=== PATIENT | female | born 1960 | race Caucasian/White ===

== ENCOUNTER 2021-07-16 17:07 | Inpatient (IN) | payer BC, SELFPAY ==
[2021-07-16 17:41] VITALS: BP 153/91; PULSE 84; RESP 18; TEMP 37.7; O2SAT 94; BMI 29.5
[2021-07-16 18:44] LABS: Basophils # 0.1 10^3/uL (0.0-0.1); Basophils % 0.5 %; Eosinophils # 0.1 10^3/uL (0.0-0.8); Eosinophils % 0.5 %; Hematocrit 39.3 % (37.0-47.0); Hemoglobin 12.5 g/dL (11.5-15.3); Lymphocytes # 2.9 10^3/uL (0.8-4.8); Lymphocytes % 21.9 %; Mean Corpuscular HGB Conc 31.8 g/dL (30.0-36.0); Mean Corpuscular Hemoglobin 28.3 pg (28.0-34.0); Mean Corpuscular Volume 89.1 fl (81-99); Mean Platelet Volume 9.5 fL (7.4-10.4); Monocytes % 7.6 %; Neutrophils # 9.26 10^3/uL (1.8-7.7); Neutrophils % 69.1 %; Nucleated Red Blood Cells % 0 %; Platelet Count 356 10^3/cmm (130-400); Red Blood Count 4.41 10^6/uL (4.1-5.3); Red Cell Distribution Width 12.6 % (12.1-15.1); White Blood Count 13.4 10^3/uL (4.0-10.0)
--- NOTE | 2021-07-16 18:53 | CTR_ITS ---
PROCEDURE INFORMATION: Exam: CT Abdomen And Pelvis With Contrast Exam date and time: 07/16/2021 6:53 PM Age: 60 years old Clinical indication: Abdominal pain; Localized; Left lower quadrant (llq); Prior surgery; Surgery type: Gb. Hysterectomy. Bladder suspension. ; Patient HX: Llq pain x 3 days; Additional info: Right lower quad abd pain TECHNIQUE: Imaging protocol: Computed tomography of the abdomen and pelvis with contrast. Radiation optimization: All CT scans at this facility use at least one of these dose optimization techniques: automated exposure control; mA and/or kV adjustment per patient size (includes targeted exams where dose is matched to clinical indication); or iterative reconstruction. Contrast material: OMNI 300; Contrast volume: 95 ml; Contrast route: INTRAVENOUS (IV); COMPARISON: No relevant prior studies available. RADIATION DOSE METRICS: Total DLP (mGy-cm): 1645.58 FINDINGS: Liver: Normal. No mass. Gallbladder and bile ducts: Cholecystectomy. No ductal dilation. Pancreas: Normal. No ductal dilation. Spleen: Normal. No splenomegaly. Adrenal glands: Normal. No mass. Kidneys and ureters: Normal. No hydronephrosis. Stomach and bowel: Extensive colonic diverticulosis. Acute diverticulitis within the distal sigmoid colon complicated by intramural abscess formation measuring 2.5 x 2.0 x 2.3 cm series 2, image 70 and series 602, image 23. Trace adjacent free fluid noted in the pelvis with extensive pericolonic inflammation in this region. Appendix: No evidence of appendicitis. Intraperitoneal space: Please see stomach and bowel section. Vasculature: Unremarkable. No abdominal aortic aneurysm. Lymph nodes: Unremarkable. No enlarged lymph nodes. Urinary bladder: Unremarkable as visualized. Reproductive: Hysterectomy. Bones/joints: No acute fracture. Degenerative disc disease at L5-S1. Soft tissues: Unremarkable. CT/CT abdomen pelvis w con* [id number] IMPRESSION: Acute diverticulitis of the distal sigmoid colon complicated by intramural abscess formation measuring 2.5 x 2.0 x 2.3 cm.
--- NOTE | 2021-07-16 18:55 | ED_ITS ---
HPI - Abdominal Pain General: Chief Complaint: Abdominal Pain Stated Complaint: ABD PAIN Time Seen by Provider: 07/16/21 18:41 History of Present Illness: Had someThis patient comes to the emergency department at the request of her nurse practitioner. Lower abdominal pain for the last approximately 3 days. She thought she might be developing a urinary tract infection but her urinalysis was not conclusive today shows she was sent to the emergency department. She states the pain is predominantly in her left lower and mid lower abdomen. She has urinary urgency but does not unusual for her. She has had a decreased appetite today. She has not had any vomiting. She has had decreased caliber of her stools over the last 24 hours. She has had a prior cholecystectomy, hysterectomy, bladder suspension. She denies any known exposure to infectious disease. She is normally in good health and takes antihypertensives. She states the pain has seemingly worsened and it kept her up last night from a good nights rest. MD elicited complaint: abdominal pain Pain Consistency: constant Quality: cramping and dull Migration to: no migration Exacerbating factors: nothing Relieving factors: nothing Associated Symptoms: Reports change in stool character, chills and poor appetite; Denies dysuria and melena Review of Systems Const: Reports: chills and change in appetite Eyes: Denies: change in vision ENMT: Denies: throat pain Card: Denies: chest pain or palpitations Resp: Denies: dyspnea, productive cough or non-productive cough GI: Reports: abdominal pain and change in stool character; Denies: melena : Reports: urinary frequency and urinary urgency; Denies: flank pain, difficulty voiding or dysuria Musc: Denies: back pain, extremity pain or extremity swelling Skin/Breast: Denies: rash, pruritus or erythema Neuro: Denies: headache(s), numbness in extremities or dizziness Psych: Denies: anxiety or depression Endo: Denies: polyuria Physical Exam Narrative: EXAM NARRATIVE: She appears to be comfortable. She answers questions in a goal-directed fashion. Const: COMMON NORMALS: no acute distress, average body habitus and patient oriented x3 HENMT: COMMON NORMALS: normocephalic HEAD & SCALP: normocephalic MOUTH: Normal oral and palatal mucosa present (Mask per protocol) Eye: COMMON NORMALS: Equal, round and reactive pupils present, EOMs intact bilaterally, conjunctivae normal and no scleral icterus CONJUNCTIVA: Yes conjunctivae normal PUPIL: Yes Equal, round and reactive pupils present Neck/C-Spine: COMMON NORMALS: full ROM, no JVD, Thyroid normal and No carotid bruits THYROID: Thyroid normal Chest: COMMONS NORMALS: normal inspection of the chest and normal palpation of entire chest wall Resp: COMMON NORMALS: normal respiratory effort, No use of accessory muscles and clear to auscultation bilaterally AUSCULTATION: clear to auscultation bilaterally Cardio: COMMON NORMALS: no JVD, regular rate, No murmurs present (Cardio) and Peripheral pulses 2+ throughout RATE: regular rate PERIPHERAL PULSES: Peripheral pulses 2+ throughout GI: COMMON NORMALS: No hepatosplenomegaly present and no masses PALPATION: Yes Tenderness to palpation present (GI) (Mild tenderness across the lower portion of her abdomen. She does have a m) Details: RLQ, Yes No hepatospleno megaly present and No Ascites present : COMMON NORMALS: Yes no CVA tenderness BLADDER/KIDNEY EXAM: Yes no CVA tenderness Back/Pelvis: COMMON NORMALS: no CVA tenderness, thoracic and lumbar spine normal to inspection and no thoracic nor lumbar tenderness Extremity: COMMON NORMALS: normal to inspection, full ROM, capillary refill normal, no clubbing, cyanosis or edema, no calf tenderness and no pedal edema Neuro: COMMON NORMALS: patient oriented x3, moves all extremities, no focal motor deficits and no sensory deficits noted SPEECH: speech normal Course Consultations: Consultation #1: Discussed with on-call surgeon and reviewed CT scan findings. He agreed with plan of management and will follow as needed but recommends admission to medicine. Time: 21:09 Consultation #2: D/c with Dr Stone, hospitalist who will see and assume care Time: 21:17 Vital Signs: Vital signs: Vital Signs Temperature 98.1 F 07/16/21 20:51 Pulse Rate 84 07/16/21 20:51 Respiratory Rate 16 07/16/21 20:51 Blood Pressure 144/60 07/16/21 20:51 Pulse Oximetry 94 07/16/21 20:51 MDM - Abdominal Pain Medical Decision Making Patient has diverticulitis with abscess formation without any evidence of perforation at this time. We will go ahead and initiate antibiotic coverage. Clinically does not suggest sepsis or other more concerning condition at this time. I discussed with patient and spouse at this time its usual recommendation to place in observation to ensure resolution. We will also discussed with general surgeon and hospitalist team. Also informed patient and spouse that we will be holding her in the emergency department until we have an open bed. Differential Diagnosis Likely abdominal pain Lab Data : 07/16/21 18:32 07/16/21 18:32 Labs/Radiology: Radiology Impressions Abdomen/Pelvis CT 07/16/21 18:53 IMPRESSION: Acute diverticulitis of the distal sigmoid colon complicated by intramural abscess formation measuring 2.5 x 2.0 x 2.3 cm. ADDENDUM: 07/16/212035 Findings were discussed with CAITLYN WILLETT at 07/16/2021 8:35 PM SCIENTIFIC ILLUSTRATOR. Laboratory Results WBC 13.4 10^3/uL (4.0-10.0) H 07/16/21 18:32 RBC 4.41 10^6/uL (4.1-5.3) 07/16/21 18:32 Hgb 12.5 g/dL (11.5-15.3) 07/16/21 18:32 Hct 39.3 % (37.0-47.0) 07/16/21 18:32 MCV 89.1 fl (81-99) 07/16/21 18:32 MCH 28.3 pg (28.0-34.0) 07/16/21 18:32 MCHC 31.8 g/dL (30.0-36.0) 07/16/21 18:32 RDW 12.6 % (12.1-15.1) 07/16/21 18:32 Plt Count 356 10^3/cmm (130-400) 07/16/21 18:32 MPV 9.5 fL (7.4-10.4) 07/16/21 18:32 Neut % (Auto) 69.1 % 07/16/21 18:32 Lymph % (Auto) 21.9 % 07/16/21 18:32 [place] % (Auto) 7.6 % 07/16/21 18:32 Eos % (Auto) 0.5 % 07/16/21 18:32 Baso % (Auto) 0.5 % 07/16/21 18:32 Neut # (Auto) 9.26 10^3/uL (1.8-7.7) H 07/16/21 18:32 Lymph # (Auto) 2.9 10^3/uL (0.8-4.8) 07/16/21 18:32 [place] # (Auto) 1.0 10^3/uL (0.2-0.9) H 07/16/21 18:32 Eos # (Auto) 0.1 10^3/uL (0.0-0.8) 07/16/21 18:32 Baso # (Auto) 0.1 10^3/uL (0.0-0.1) 07/16/21 18:32 Nucleated RBC % (auto) 0 % 07/16/21 18:32 Nucleated RBCs # 0.0 /100WBC 07/16/21 18:32 Sodium 140 mmol/L (136-145) 07/16/21 18:32 Potassium 4.1 mmol/L (3.5-5.1) 07/16/21 18:32 Chloride 102 mmol/L (98-107) 07/16/21 18:32 Carbon Dioxide 24 mmol/L (22-29) 07/16/21 18:32 Anion Gap 18.1 (5-19) 07/16/21 18:32 BUN 7 mg/dL (8-23) L 07/16/21 18:32 Creatinine 0.6 mg/dL (0.5-0.9) 07/16/21 18:32 GFR Calculation 101.3 mL/min (90-130) 07/16/21 18:32 Glucose 97 mg/dL (65-115) 07/16/21 18:32 Calculated Osmolality 288 mOsm/kg (285-295) 07/16/21 18:32 Calcium 9.8 mg/dL (8.5-10.5) 07/16/21 18:32 Total Bilirubin 0.4 mg/dL (0.15-1.2) 07/16/21 18:32 AST 21 U/L (0-32) 07/16/21 18:32 ALT 15 U/L (0-33) 07/16/21 18:32 Alkaline Phosphatase 117 IU/L (35-105) H 07/16/21 18:32 Total Protein 7.7 g/dL (6.6-8.7) 07/16/21 18:32 Albumin 4.1 g/dL (3.5-5.2) 07/16/21 18:32 Globulin 3.6 g/dL (1.3-4.6) 07/16/21 18:32 Lipase 37 U/L (13-60) 07/16/21 18:32 Urine Color Yellow (Yellow) 07/16/21 17:20 Urine Appearance Clear (CLEAR) 07/16/21 17:20 Urine pH 6 (5-7) 07/16/21 17:20 Ur Specific [place] 1.005 (1.005-1.030) 07/16/21 17:20 Urine Protein Neg (Negative) 07/16/21 17:20 Urine Glucose (UA) Norm (Normal) 07/16/21 17:20 Urine Ketones Negative (Negative) 07/16/21 17:20 Urine Blood Neg (Negative) 07/16/21 17:20 Urine Nitrate Negative (Negative) 07/16/21 17:20 Urine Bilirubin Neg (Negative) 07/16/21 17:20 Urine Urobilinogen Neg mg/dL (Negative) 07/16/21 17:20 Ur Leukocyte Esterase 1+ (Negative) H 07/16/21 17:20 Urine RBC Rare /hpf (0-2) 07/16/21 17:20 Urine WBC 0-4 /hpf (0-5) H 07/16/21 17:20 Ur Squamous Epith Cells Rare /hpf (0-5) 07/16/21 17:20 Amorphous Sediment Not Reportable 07/16/21 17:20 Urine Bacteria Trace /hpf (NONE) 07/16/21 17:[address] Abd/Pel: Radiologist's impression: Verbal report from radiologist was diverticulitis with intramural abscess. See full report. Discharge Plan Discharge Patient Disposition: Admitted As Inpatient Clinical Impression: Diverticulitis of intestine with abscess without bleeding Condition: Stable Coding Level of Care Code ED Product Marketing Engineer for Chg Fwd Exam Comprehensive
[2021-07-16 19:10] LABS: Alanine Aminotransferase 15 U/L (0-33); Albumin Level 4.1 g/dL (3.5-5.2); Alkaline Phosphatase 117 IU/L (35-105); Anion Gap 18.1 (5-19); Aspartate Amino Transferase 21 U/L (0-32); Blood Urea Nitrogen 7 mg/dL (8-23); Calcium 9.8 mg/dL (8.5-10.5); Carbon Dioxide 24 mmol/L (22-29); Chloride 102 mmol/L (98-107); Globulin 3.6 g/dL (1.3-4.6); Glomerular Filtration Rate 101.3 mL/min (90-130); Glucose 97 mg/dL (65-115); Lipase 37 U/L (13-60); Osmolality Calculated 288 mOsm/kg (285-295); Potassium 4.1 mmol/L (3.5-5.1); Sodium 140 mmol/L (136-145); Total Bilirubin 0.4 mg/dL (0.15-1.2); Total Protein 7.7 g/dL (6.6-8.7)
[2021-07-16 19:36] LABS: Add Urine Culture? No; Add Urine Microscopic? YES; Bacteria Urine TRACE /hpf; Bilirubin Urine Neg (Negative); Blood Urine Neg (Negative); Glucose Urine UA Norm (Normal); Ketones Urine Negative (Negative); Leukocyte Esterase Urine 1+ (Negative); Nitrate Urine Negative (Negative); Protein Urine Neg (Negative); RBC Urine RARE /hpf (0-2); Specific Gravity, Urine 1.005 (1.005-1.030); Squamous Epithelial Cell Urine RARE /hpf (0-5); Urine Appearance Clear (CLEAR); Urine Color Yellow (Yellow); Urobilinogen Urine Neg (Negative); WBC Urine 0-4 /hpf (0-5); pH Urine 6 (5-7)
[2021-07-16] MEDS: iohexol 300 mg/mL 100 mL Btl IV (20:02)
[2021-07-16 20:22] VITALS: TEMP 36.7
[2021-07-16] MEDS: sodium chloride 0.9% 1,000 ML 150 ML IV (20:50)
[2021-07-16 20:51] VITALS: BP 144/60; PULSE 84; RESP 16; TEMP 36.7; O2SAT 94
[2021-07-16] MEDS: ciprofloxacin 400 MG/200 ML PREMIX 200 MG IV (21:40)
[2021-07-16 22:06] VITALS: BP 101/92; PULSE 78; RESP 16; TEMP 37.3; O2SAT 96
--- NOTE | 2021-07-16 22:10 | PM.HP ---
Providers/Chief Complaint Primary Care Provider: Emily Rodriges DO Chief Complaint: ABD PAIN History of Present Illness Rosa Hart is a 60 year old female with a past medical history of hypothyroidism, hypertension, diverticulitis, who presents to [facility] for right lower quadrant abdominal pain. Patient tells me that she has had 2 episodes of diverticulitis in the past, over 10 years ago, had a colonoscopy a few years ago that showed diverticula, she tells me that over the last few days she has been experiencing increasing abdominal pain, decreased appetite, nausea, decreased stooling, with low-grade fevers. She also started developing low-grade fevers, so she presented to her primary care physician, and was found to have right lower quadrant pain, given concerns for appendicitis was sent here to the emergency room. Patient CT scan shows acute diverticulitis with an intramural abscess, hospitalist team was called for admission. Review of Systems Const: Reports: fever(s); Denies: chills, fatigue or malaise Eyes: Denies: change in vision or blurry vision ENMT: Denies: nasal congestion Resp: Denies: dyspnea, productive cough, non-productive cough or wheezing GI: Reports: abdominal pain and nausea; Denies: vomiting, hematemesis, diarrhea, constipation, hematochezia or melena : Denies: flank pain, dysuria or urinary frequency Musc: Denies: neck pain or back pain Skin/Breast: Denies: rash Neuro: Denies: headache(s), dizziness or vertigo Psych: Denies: anxiety or depression Endo: Denies: polyuria or polydipsia Medications/Allergies Allergies Allergy/AdvReac Type Severity Reaction Status Date / Time GEL caps Allergy ALGY-Anaphy Uncoded 07/16/21 17:40 laxis PFSH Acute PFSH: Medical History (Updated 07/16/21 @ 22:14 by Sang Stone MD) History of hypertension History of hypothyroidism Surgical History (Updated 07/16/21 @ 22:12 by Sang Stone MD) History of bilateral knee replacement History of cholecystectomy Family History (Updated 07/16/21 @ 22:13 by Sang Stone MD) Mother CAD (coronary artery disease) Stroke Social History (Updated 07/16/21 @ 22:12 by Sang Stone MD) Smoking and tobacco status: never smoked Alcohol intake: never Substance/Drug Use: never Vitals/I&O/Wt Last Vital Signs Temp 99.2 F 07/16/21 22:06 Pulse 78 07/16/21 22:06 Resp 16 07/16/21 22:06 BP 101/92 07/16/21 22:06 Pulse Ox 96 07/16/21 22:06 Weight last 48 hrs Weight 78.018 kg Physical Exam Const: COMMON NORMALS: no acute distress and patient oriented x3 GENERAL APPEARANCE: cooperative, well kempt and well developed HENMT: COMMON NORMALS: normocephalic and Normal external nose present HEAD & SCALP: normocephalic FACE & SINUS: normal facial exam NOSE: Normal external nose present MOUTH: Normal oral and palatal mucosa present Eye: COMMON NORMALS: Equal, round and reactive pupils present, EOMs intact bilaterally, conjunctivae normal and no scleral icterus CONJUNCTIVA: Yes conjunctivae normal PUPIL: Yes Equal, round and reactive pupils present Neck/C-Spine: COMMON NORMALS: full ROM, no lymphadenopathy, no JVD and Thyroid normal Lymph: LYMPHATIC: no lymphadenopathy noted Chest: COMMONS NORMALS: normal inspection of the chest Resp: COMMON NORMALS: normal respiratory effort, No retractions, No use of accessory muscles and clear to auscultation bilaterally AUSCULTATION: clear to auscultation bilaterally Cardio: COMMON NORMALS: regular rate, regular rhythm, S1 normal heart sound present, S2 normal heart sound present, No murmurs present (Cardio) and Peripheral pulses 2+ throughout RATE: regular rate RHYTHM: regular rhythm HEART SOUNDS: S1 normal heart sound present and S2 normal heart sound present PERIPHERAL PULSES: Peripheral pulses 2+ throughout GI: INSPECTION: Yes normal to inspection AUSCULTATION: Yes Hyperactive bowel sounds present PALPATION: Yes Soft to palpation, Yes Tenderness to palpation present (GI) Details: LLQ and RLQ, No Guarding due to palpation present (GI) and No Rigid due to palpation PERCUSSION: normal to percussion : COMMON NORMALS: Yes no CVA tenderness Extremity: COMMON NORMALS: normal to inspection, full ROM, capillary refill normal, no calf tenderness and no pedal edema Neuro: COMMON NORMALS: patient oriented x3, CN's II-XII intact bilaterally, moves all extremities, no focal motor deficits and no sensory deficits noted MENINGEAL SIGNS: Yes no meningeal signs Psych: COMMON NORMALS: mental status grossly normal, Normal thought process present, cooperative and speech normal APPEARANCE: Yes well kempt SPEECH: Yes normal speech THOUGHT PROCESS: Normal thought process present Skin: COMMON NORMALS: turgor normal and no jaundice GENERAL SKIN EXAM: turgor normal Data : 07/16/21 18:32 07/16/21 18:32 A&P Assessment and plan (1) Diverticulitis of intestine with abscess: Status: Acute Plan Acute diverticulitis of sigmoid colon complicated by intramural abscess formation measuring 2.5 x 2 x 2.3 cm -He has consulted general surgery, who recommended medical management -N.p.o. - serial abdominal exams - IV fluids -Cipro and Flagyl -Full code -Heparin for DVT prophylaxis Hypothyroidism, patient's not sure how much levothyroxine she takes, will have to find out from her pharmacy tomorrow Hypertension, takes amlodipine at home hold for now Attestations Medical Necessity Statement*: Patient requires hospitalization, inpatient, greater than 2 midnights, for diverticulitis Coding Level of Care Code Acute Lower In Supervisor for Chg Fwd History Comprehensive Exam Comprehensive Medical Decision Making Moderate Complexity Diagnoses Diverticulitis of intestine with abscess K57.80 Time Spent (min) 55
[2021-07-16] MEDS: metroNIDAZOLE IV 500 MG/100 ML PREMIX 100 MG IV (23:10)
[2021-07-16 23:31] VITALS: BP 110/87; PULSE 75; RESP 16; TEMP 37.1; O2SAT 96
[2021-07-17] VITALS (10 sets, daily range): BP systolic 114–140; BP diastolic 62–85; PULSE 70–82; RESP 16–18; TEMP 36.7–37.1; O2SAT 94–98
[2021-07-17] MEDS: dextrose 5%-sod chloride 0.9% 1,000 ML 100 ML IV ×3 (01:37→22:21)
[2021-07-17] MEDS: heparin 5,000 unit/mL INJ 1 mL 5000 UNIT SUBCUT (01:37)
[2021-07-17] MEDS: pantoprazole 40 mg SDV IVP (01:39)
[2021-07-17 02:03] LABS: Thyroid Stimulating Hormone 2.66 uIU/mL (0.27-4.20)
[2021-07-17 04:29] LABS: Basophils % 0.3 %; Eosinophils # 0.1 10^3/uL (0.0-0.8); Eosinophils % 0.6 %; Hematocrit 34.3 % (37.0-47.0); Hemoglobin 11.2 g/dL (11.5-15.3); Lymphocytes # 2.2 10^3/uL (0.8-4.8); Lymphocytes % 20.4 %; Mean Corpuscular HGB Conc 32.7 g/dL (30.0-36.0); Mean Corpuscular Hemoglobin 29.1 pg (28.0-34.0); Mean Corpuscular Volume 89.1 fl (81-99); Mean Platelet Volume 9.7 fL (7.4-10.4); Monocytes # 1.1 10^3/uL (0.2-0.9); Monocytes % 10.2 %; Neutrophils # 7.25 10^3/uL (1.8-7.7); Neutrophils % 68.1 %; Nucleated Red Blood Cells % 0 %; Platelet Count 297 10^3/cmm (130-400); Red Blood Count 3.85 10^6/uL (4.1-5.3); Red Cell Distribution Width 12.7 % (12.1-15.1); White Blood Count 10.6 10^3/uL (4.0-10.0)
[2021-07-17 04:54] LABS: Alanine Aminotransferase 14 U/L (0-33); Albumin Level 3.3 g/dL (3.5-5.2); Alkaline Phosphatase 99 IU/L (35-105); Anion Gap 16.4 (5-19); Aspartate Amino Transferase 17 U/L (0-32); Blood Urea Nitrogen 6 mg/dL (8-23); C Reactive Protein 48.7 mg/L (0.0-4.9); Carbon Dioxide 22 mmol/L (22-29); Chloride 105 mmol/L (98-107); Globulin 3.1 g/dL (1.3-4.6); Glucose 98 mg/dL (65-115); Magnesium 1.9 mg/dL (1.7-2.3); Osmolality Calculated 288 mOsm/kg (285-295); Potassium 3.4 mmol/L (3.5-5.1); Sodium 140 mmol/L (136-145); Total Bilirubin 0.6 mg/dL (0.15-1.2); Total Protein 6.4 g/dL (6.6-8.7)
[2021-07-17 04:56] LABS: Phosphorus 3.5 mg/dL (2.5-4.5)
[2021-07-17 05:01] LABS: Procalcitonin 0.07 ng/mL (0-0.5)
[2021-07-17] MEDS: metroNIDAZOLE IV 500 MG/100 ML PREMIX 100 MG IV ×2 (08:19→16:46)
--- NOTE | 2021-07-17 08:40 | P.CONIM_ITS ---
Providers/Reason For Consult Consulting Physician/Specialty*: General Surgery Otis Sosa MD Reason for Consult*: Sigmoid diverticulitis with intramural abscess. Attending Physician: Sang Stone MD Primary Care Provider: Emily Rodriges DO History of Present Illness History of Present Illness Rosa Hart is a 60 year old female who developed some pelvic discomfort last Wednesday (about 6 days ago). She thought initially she was constipated (not an unusual problem for her) and so she took some magnesium tablets and had some diarrhea the next day, but her pain continued to progress. She has had some nausea but no vomiting. She had a small bowel movement a couple of days ago but has not had anything since. She does continue to pass some flatus. She says she ran a temperature of a little over 101 degrees yesterday. She came to the emergency room yesterday and a CAT scan showed evidence of sigmoid diverticulitis with an intramural abscess. The patient says that she had an episode of diverticulitis perhaps 10 years ago. She did not have to be in the hospital at that time. She says she had a colonoscopy about 4 years ago and no problems were found. She does have a brother and an uncle with a history of colon cancer. Review of Systems General: Reports: 10 or more systems reviewed and unremarkable except in HPI and below Const: Reports: fever(s) GI: Reports: abdominal pain and nausea; Denies: vomiting Medications/Allergies Allergies Allergy/AdvReac Type Severity Reaction Status Date / Time GEL caps Allergy ALGY-Anaphy Uncoded 07/16/21 17:40 laxis Current Medications Generic Name Dose Route Start Last Admin Trade Name Freq PRN Reason Stop Dose Admin Heparin Sodium (Porcine) 5,000 unit 07/17/21 00:33 07/17/21 01:37 Heparin 5,000 Unit/Ml Inj 1 Ml SUBCUT 5,000 unit Q12H MACY Administration Dextrose/Sodium Chloride 1,000 mls @ 100 mls/hr 07/17/21 00:33 07/17/21 01:37 Dextrose 5%-Sod Chloride 0.9% IV 100 mls/hr .Q10H MACY Administration Metronidazole 500 mg in 100 mls @ 100 mls/hr 07/17/21 08:30 07/17/21 08:19 Flagyl Iv IV 100 mls/hr Q8H MACY Administration Protocol Pantoprazole Sodium 40 mg 07/17/21 00:33 07/17/21 01:39 Pantoprazole 40 Mg Sdv IVP 40 mg Q12H MACY Administration PFSH Acute PFSH: Medical History History of hypertension History of hypothyroidism Surgical History (Updated 07/17/21 @ 09:01 by Otis Sosa MD) History of bilateral knee replacement History of bladder suspension procedure x 2 History of cholecystectomy History of eye surgery Bilateral -- glaucoma / lens placements History of hysterectomy Family History (Updated 07/16/21 @ 22:13 by Sang Stone MD) Mother CAD (coronary artery disease) Stroke Social History (Updated 07/17/21 @ 09:01 by Otis Sosa MD) Smoking and tobacco status: never smoked Alcohol intake: current Alcohol use comment: Perhaps once a month Substance/Drug Use: never Vitals/I&O/Wt Last Vital Signs Temp 98.7 F 07/17/21 06:23 Pulse 75 07/17/21 08:24 Resp 18 07/17/21 08:24 BP 125/69 07/17/21 08:24 Pulse Ox 95 07/17/21 08:24 07/16/21 07/17/21 07/17/21 22:59 06:59 14:59 Intake Total 1300 / 1300 Balance 1300 / 1300 Weight last 48 hrs Weight 172 lb Physical Exam Narrative: EXAM NARRATIVE: The patient was encountered in her room in the emergency department. She does not appear to be in any distress. The pupils are equal. No carotid bruits are heard. The lungs are clear anteriorly. The heart is regular. The abdomen is mildly to moderately obese but reveals good bowel sounds. She has some mild to moderate tenderness in the midline over the suprapubic area. No obvious masses are palpated. The remainder the abdomen reveals no abnormalities. There is a healed lower midline scar. The extremities reveal no edema. Neurologically the patient appears to be grossly intact. Data : 07/17/21 04:03 07/17/21 04:03 CT Abd/Pel: Radiologist's impression: CT abdomen/pelvis 07/16/2021 IMPRESSION: Acute diverticulitis of the distal sigmoid colon complicated by intramural abscess formation measuring 2.5 x 2.0 x 2.3 cm. A&P Assessment and plan (1) Diverticulitis of intestine with abscess: We discussed diverticulitis in some detail. She had this 10 years ago and so she is fairly familiar with the treatment, but she did not have to be hospitalized at that time. We discussed how most of these cases will hopefully get better with conservative management, but if they do not and surgery is required, oftentimes a colostomy is necessary. She would obviously like to try to avoid this if at all possible. Intravenous antibiotics. I will continue following with you. Status: Acute Consult Attestations Medical Necessity Statement: See admitting service's notation. Coding Level of Care Code Acute It Security Administrator for [facility] Diagnoses Diverticulitis of intestine with abscess K57.80
[2021-07-17] MEDS: ciprofloxacin 400 MG/200 ML PREMIX 200 MG IV ×2 (09:30→22:20)
--- NOTE | 2021-07-17 12:55 | PC.NURSE ---
PATIENT TO HAVE HEPARIN AND PANTOPRAZOLE. PT HAS ALPHA-GAL ALLERGY AND NEEDS VEGAN ONLY MEDICATIONS. PT NEEDS ALTERNATE MEDICATIONS FOR HEPARIN AND PANTOPRAZOLE. PT HOSPITALIST CONTACTED, RICHIE LEFT. AWAITING REPLY.
--- NOTE | 2021-07-17 13:16 | PC.NURSE ---
DR. MAURICIO RECOMMENDED THAT WE GIVE THE PT LOVENOX AND PO PROTONIX. ORDERS TO BE MADE BY RN WITH VERBAL READBACK
[2021-07-17] MEDS: enoxaparin 30 mg/0.3 mL Syringe SUBCUT (13:41)
--- NOTE | 2021-07-17 14:30 | PC.OT ---
OT EVALUATION ORDERS RECEIVED; OT SCREEN COMPLETED. PATIENT PLOF: INDEPENDENT; NO DME. PATIENT EXHIBITS NO DEFICITS IN ADL, UE WEAKNESS OR DECREASED ENDURANCE AT THIS TIME. ONLY C/O ABDOMINAL PAIN; DOCTOR IN ROOM AND AWARE. NO FURTHER SKILLED OT REQUIRED AT THIS TIME.
--- NOTE | 2021-07-17 15:34 | PM.PN ---
Subjective Subjective: Interval history: Overnight labs and H&P reviewed. Complains of lower abdominal discomfort. Has not had a bowel movement yet, passing some flatus. No vomiting. Currently afebrile, hemodynamically stable. Vitals/I&O/Wt Last Vital Signs Temp 98.1 F 07/17/21 14:27 Pulse 79 07/17/21 14:27 Resp 16 07/17/21 14:27 BP 140/79 07/17/21 14:27 Pulse Ox 94 07/17/21 14:27 07/17/21 07/17/21 07/17/21 06:59 14:59 22:59 Intake Total 1300 / 1300 1221.667 / 1221.667 Balance 1300 / 1300 1221.667 / 1221.667 Weight last 48 hrs Weight 78.018 kg Physical Exam Narrative: EXAM NARRATIVE: General: No acute distress, AO x3 HEENT: PERRLA, pupils bilaterally equal and reactive, pallors not present Chest: Normal vesicular breath sounds, no added sounds, equal good air entry bilaterally CVS: S1-S2 regular, no murmurs, no tachycardia, no gallops, no rubs Abdomen: Soft, nontender, no organomegaly, bowel sounds present Neuro: No focal deficits, no facial deformity, AO x3, power 5/5 in all limbs Extremities: No edema clubbing or lymphadenopathy Data : 07/17/21 04:03 07/17/21 04:03 A&P Assessment and plan (1) Diverticulitis of intestine with abscess: Status: Acute Plan Acute diverticulitis of sigmoid colon complicated by intramural abscess formation measuring 2.5 x 2 x 2.3 cm - continue iv abx treatment with iv ciprofloxacin and iv metronidazole -N.p.o. for bowel rest - serial abdominal exams - IV fluids Attestations Medical Necessity Statement*: Diverticulitis with abscess, need for IV fluids ans iv antibiotics Coding Level of Care Code Acute Media Production Manager for [facility] Diagnoses Diverticulitis of intestine with abscess K57.80
[2021-07-17] MEDS: diclofenac 1% Topical Gel 100 gm 1 APPLIC TOPICAL ×2 (16:45→20:51)
[2021-07-17] MEDS: pantoprazole DR 40 mg Tablet PO (18:41)
[2021-07-17] MEDS: latanoprost 0.005% Op Soln 2.5 mL Btl 1 DROP EYE-BOTH (22:33)
[2021-07-18] VITALS: BP 128/67; PULSE 74; RESP 18; O2SAT 94
[2021-07-18] MEDS: metroNIDAZOLE IV 500 MG/100 ML PREMIX 100 MG IV ×4 (01:16→16:00)
[2021-07-18 03:02] LABS: Basophils % 0.4 %; Eosinophils # 0.1 10^3/uL (0.0-0.8); Eosinophils % 1.1 %; Hematocrit 33.9 % (37.0-47.0); Lymphocytes # 2.2 10^3/uL (0.8-4.8); Lymphocytes % 29.8 %; Mean Corpuscular HGB Conc 32.4 g/dL (30.0-36.0); Mean Corpuscular Hemoglobin 28.6 pg (28.0-34.0); Mean Corpuscular Volume 88.3 fl (81-99); Mean Platelet Volume 9.4 fL (7.4-10.4); Monocytes # 0.7 10^3/uL (0.2-0.9); Monocytes % 9.3 %; Neutrophils # 4.37 10^3/uL (1.8-7.7); Neutrophils % 59.1 %; Nucleated Red Blood Cells % 0 %; Platelet Count 293 10^3/cmm (130-400); Red Blood Count 3.84 10^6/uL (4.1-5.3); Red Cell Distribution Width 12.4 % (12.1-15.1); White Blood Count 7.4 10^3/uL (4.0-10.0)
[2021-07-18 03:28] LABS: Alanine Aminotransferase 12 U/L (0-33); Albumin Level 3.3 g/dL (3.5-5.2); Alkaline Phosphatase 93 IU/L (35-105); Anion Gap 15.4 (5-19); Aspartate Amino Transferase 18 U/L (0-32); Blood Urea Nitrogen 5 mg/dL (8-23); Calcium 9.2 mg/dL (8.5-10.5); Carbon Dioxide 22 mmol/L (22-29); Chloride 106 mmol/L (98-107); Glucose 92 mg/dL (65-115); Magnesium 1.9 mg/dL (1.7-2.3); Osmolality Calculated 287 mOsm/kg (285-295); Potassium 3.4 mmol/L (3.5-5.1); Sodium 140 mmol/L (136-145); Total Bilirubin 0.5 mg/dL (0.15-1.2); Total Protein 6.3 g/dL (6.6-8.7)
[2021-07-18 04:00] VITALS: BP 153/77; PULSE 69; O2SAT 95
--- NOTE | 2021-07-18 05:04 | PC.NURSE ---
Patient refuses to wear tele d/t she is allergic to the gel pads. Also refusing to wear SCDs.
--- NOTE | 2021-07-18 06:40 | P.PN_ITS ---
Subjective Subjective: Interval history: The patient says she is feeling better, but is still having some lower abdominal pain. She continues to pass a little bit of flatus. Vitals/I&O/Wt Last Vital Signs Temp 98.4 F 07/17/21 20:00 Pulse 69 07/18/21 04:00 Resp 18 07/18/21 00:00 BP 153/77 07/18/21 04:00 Pulse Ox 95 07/18/21 04:00 07/17/21 07/17/21 07/18/21 14:59 22:59 06:59 Intake Total 1221.667 / 2621.667 1100 / 2621.667 300 / 2621.667 Output Total 100 / 1100 1000 / 1100 Balance 1221.667 / 6308.732 9364 / 1521.667 -700 / 1521.667 Weight last 48 hrs Weight 172 lb Weight 172 lb Physical Exam Narrative: EXAM NARRATIVE: The patient already seems a little bit better to me on palpation, but still does have a little tenderness in the lower midline. Data : 07/18/21 02:49 07/18/21 02:49 A&P Assessment and plan (1) Diverticulitis of intestine with abscess: The patient already seems to be a little bit improved clinically. Continue intravenous antibiotics. Status: Acute Attestations Medical Necessity Statement*: See admitting service's notation. 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
[2021-07-18 08:00] VITALS: BP 144/77; PULSE 75; RESP 18; TEMP 36.6; O2SAT 94
[2021-07-18] MEDS: pantoprazole DR 40 mg Tablet PO ×2 (08:14→16:00)
[2021-07-18] MEDS: diclofenac 1% Topical Gel 100 gm 1 APPLIC TOPICAL ×3 (08:17→16:00)
[2021-07-18] MEDS: ciprofloxacin 400 MG/200 ML PREMIX 200 MG IV ×2 (10:03→21:02)
[2021-07-18 12:00] VITALS: BP 135/83; PULSE 72; RESP 18; TEMP 36.8; O2SAT 95
[2021-07-18] MEDS: dextrose 5%-sod chloride 0.9% 1,000 ML 100 ML IV (14:08)
[2021-07-18] MEDS: fexofenadine 60 mg Tablet 180 MG PO (15:00)
--- NOTE | 2021-07-18 15:11 | P.PN_ITS ---
Subjective Subjective: Interval history: pain imrpoved today, had has 4-5 episodes of diarrhea today, no vomiting, no fever, hemodynamics stable. Diet advanced to clears today Vitals/I&O/Wt Last Vital Signs Temp 98.2 F 07/18/21 12:00 Pulse 72 07/18/21 12:00 Resp 18 07/18/21 12:00 BP 135/83 07/18/21 12:00 Pulse Ox 95 07/18/21 12:00 07/18/21 07/18/21 07/18/21 06:59 14:59 22:59 Intake Total 300 / 2621.667 1720 / 1720 Output Total 1000 / 1100 Balance -700 / 7995.875 8173 / 1720 Weight last 48 hrs Weight 78.018 kg Weight 78.018 kg Physical Exam Narrative: EXAM NARRATIVE: General: No acute distress, AO x3 HEENT: PERRLA, pupils bilaterally equal and reactive, pallors not present Chest: Normal vesicular breath sounds, no added sounds, equal good air entry bilaterally CVS: S1-S2 regular, no murmurs, no tachycardia, no gallops, no rubs Abdomen: Soft, nontender, no organomegaly, bowel sounds present Neuro: No focal deficits, no facial deformity, AO x3, power 5/5 in all limbs Extremities: No edema clubbing or lymphadenopathy Data : 07/18/21 02:49 07/18/21 02:49 A&P Assessment and plan (1) Diverticulitis of intestine with abscess: Status: Acute Plan Acute diverticulitis of sigmoid colon complicated by intramural abscess formation measuring 2.5 x 2 x 2.3 cm - continue iv abx treatment with iv ciprofloxacin and iv metronidazole -pain is improving, started clears today interval development of diarrhea, check C. 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
[2021-07-18] MEDS: enoxaparin 30 mg/0.3 mL Syringe SUBCUT (15:58)
[2021-07-18 16:00] VITALS: BP 174/92; PULSE 76; RESP 18; TEMP 36.8; O2SAT 98
[2021-07-18 20:00] VITALS: BP 143/79; PULSE 71; RESP 18; TEMP 36.9; O2SAT 95
[2021-07-18] MEDS: latanoprost 0.005% Op Soln 2.5 mL Btl 1 DROP EYE-BOTH (21:01)
[2021-07-18] MEDS: diphenhydrAMINE 12.5 mg/5 mL UDC 10 mL 25 MG PO (21:01)
[2021-07-19] VITALS: BP 125/72; PULSE 70; RESP 18; TEMP 36.6; O2SAT 97
[2021-07-19] MEDS: dextrose 5%-sod chloride 0.9% 1,000 ML 100 ML IV (00:16)
[2021-07-19] MEDS: metroNIDAZOLE IV 500 MG/100 ML PREMIX 100 MG IV ×2 (00:16→09:20)
[2021-07-19 04:00] VITALS: BP 109/66; PULSE 64; RESP 18; TEMP 36.5; O2SAT 96
[2021-07-19 06:49] LABS: Basophils % 0.3 %; Eosinophils # 0.1 10^3/uL (0.0-0.8); Eosinophils % 1.1 %; Hematocrit 35.4 % (37.0-47.0); Hemoglobin 11.2 g/dL (11.5-15.3); Lymphocytes # 1.7 10^3/uL (0.8-4.8); Lymphocytes % 24.8 %; Mean Corpuscular HGB Conc 31.6 g/dL (30.0-36.0); Mean Corpuscular Hemoglobin 28.4 pg (28.0-34.0); Mean Corpuscular Volume 89.6 fl (81-99); Mean Platelet Volume 9.7 fL (7.4-10.4); Monocytes # 0.7 10^3/uL (0.2-0.9); Monocytes % 9.5 %; Neutrophils # 4.47 10^3/uL (1.8-7.7); Nucleated Red Blood Cells % 0 %; Platelet Count 302 10^3/cmm (130-400); Red Blood Count 3.95 10^6/uL (4.1-5.3); Red Cell Distribution Width 12.2 % (12.1-15.1)
[2021-07-19 07:08] LABS: Alanine Aminotransferase 12 U/L (0-33); Albumin Level 3.2 g/dL (3.5-5.2); Alkaline Phosphatase 93 IU/L (35-105); Anion Gap 14.3 (5-19); Aspartate Amino Transferase 21 U/L (0-32); Blood Urea Nitrogen 3 mg/dL (8-23); Calcium 8.2 mg/dL (8.5-10.5); Carbon Dioxide 23 mmol/L (22-29); Chloride 106 mmol/L (98-107); Globulin 3.2 g/dL (1.3-4.6); Glomerular Filtration Rate 101.3 mL/min (90-130); Glucose 108 mg/dL (65-115); Magnesium 1.9 mg/dL (1.7-2.3); Osmolality Calculated 287 mOsm/kg (285-295); Potassium 3.3 mmol/L (3.5-5.1); Sodium 140 mmol/L (136-145); Total Bilirubin 0.3 mg/dL (0.15-1.2); Total Protein 6.4 g/dL (6.6-8.7)
[2021-07-19 07:18] VITALS: BP 148/85; PULSE 72; RESP 16; TEMP 36.6; O2SAT 98
--- NOTE | 2021-07-19 08:47 | P.PN_ITS ---
Subjective Subjective: Interval history: The patient says she feels like she is completely back to normal. She denies any pain. She has been afebrile. She is very anxious to go home today. Vitals/I&O/Wt Last Vital Signs Temp 97.9 F 07/19/21 07:18 Pulse 72 07/19/21 07:18 Resp 16 07/19/21 07:18 BP 148/85 07/19/21 07:18 Pulse Ox 98 07/19/21 07:18 07/18/21 07/19/21 07/19/21 22:59 06:59 14:59 Intake Total 1290 / 3370 260 / 3370 Output Total 1600 / 2200 600 / 2200 Balance -310 / 1170 -340 / 1170 Weight last 48 hrs Weight 172 lb Physical Exam Narrative: EXAM NARRATIVE: Bowel sounds are present. The abdomen is completely nontender on exam. Data : 07/19/21 06:25 07/19/21 06:25 Micro: Microbiology 07/18/21 17:50 C.difficile Toxin B Gene (PCR) - Final Stool A&P Assessment and plan (1) Diverticulitis of intestine with abscess: The patient is much improved. I told her that it is okay with me if she is discharged on oral antibiotics. I would let Dr. Gastelum dictate the length of the course. It has been about 4?5 years since the patient had a colonoscopy and she has a brother with a history of colon cancer. I told her that rarely we see an early colon neoplasm take on this kind of an appearance on a CAT scan, so a colonoscopy is something to consider in 6?8 weeks assuming continued improvement. She voiced understanding. Please call if I can be of further help. Status: Acute Attestations Medical Necessity Statement*: See admitting service's notation. Coding Level of Care Code Acute Collections Representative for [facility] Diagnoses Diverticulitis of intestine with abscess K57.80
[2021-07-19] MEDS: pantoprazole DR 40 mg Tablet PO (09:20)
[2021-07-19] MEDS: ciprofloxacin 400 MG/200 ML PREMIX 200 MG IV (09:20)
--- NOTE | 2021-07-19 11:14 | P.DS_ITS ---
Discharge Providers Date of Admission: 07/16/21 21:53 Date of Discharge: July 19, 2021 Attending Provider at Admission: Sang Stone MD Attending Provider at Discharge: Codie Gastelum MD Primary Care Provider: Emily Rodriges DO Diagnoses at Discharge Discharge Diagnosis (1) Diverticulitis of intestine with abscess: Status: Acute Reason for Visit Reason for Visit: ABD PAIN Brief History: cindy Hart is a 60 year old female with a past medical history of hypothyroidism, hypertension, diverticulitis, who presents to [facility] for right lower quadrant abdominal pain and fever. Hospital Course Hospital Course Patient was diagnosed based on a CAT scan with acute diverticulitis of sigmoid colon complicated by an intramural abscess formation measuring 2.5 x 2 x 2.3 cm. General surgery was consulted and patient was recommended medical management. She received bowel rest, serial abdominal exams, IV fluids and IV antibiotic course with ciprofloxacin and metronidazole. She recovered well. Diet was advanced on July 18 and she is currently on a GI soft diet which she is tolerating. At this present time there is no abdominal pain. He is being discharged with recommendations to continue ciprofloxacin and metronidazole over the next 10 days and follow-up as outpatient with general surgery. 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 ADDENDUM: 07/16/212035 Findings were discussed with CAITLYN WILLETT at 07/16/2021 8:35 PM CORPORATE SECURITIES RESEARCH ANALYST. Laboratory Results WBC 7.0 10^3/uL (4.0-10.0) 07/19/21 06:25 RBC 3.95 10^6/uL (4.1-5.3) L 07/19/21 06:25 Hgb 11.2 g/dL (11.5-15.3) L 07/19/21 06:25 Hct 35.4 % (37.0-47.0) L 07/19/21 06:25 MCV 89.6 fl (81-99) 07/19/21 06:25 MCH 28.4 pg (28.0-34.0) 07/19/21 06:25 MCHC 31.6 g/dL (30.0-36.0) 07/19/21 06:25 RDW 12.2 % (12.1-15.1) 07/19/21 06:25 Plt Count 302 10^3/cmm (130-400) 07/19/21 06:25 MPV 9.7 fL (7.4-10.4) 07/19/21 06:25 Neut % (Auto) 64.0 % 07/19/21 06:25 Lymph % (Auto) 24.8 % 07/19/21 06:25 [place] % (Auto) 9.5 % 07/19/21 06:25 Eos % (Auto) 1.1 % 07/19/21 06:25 Baso % (Auto) 0.3 % 07/19/21 06:25 Neut # (Auto) 4.47 10^3/uL (1.8-7.7) 07/19/21 06:25 Lymph # (Auto) 1.7 10^3/uL (0.8-4.8) 07/19/21 06:25 [place] # (Auto) 0.7 10^3/uL (0.2-0.9) 07/19/21 06:25 Eos # (Auto) 0.1 10^3/uL (0.0-0.8) 07/19/21 06:25 Baso # (Auto) 0.0 10^3/uL (0.0-0.1) 07/19/21 06:25 Nucleated RBC % (auto) 0 % 07/19/21 06:25 Nucleated RBCs # 0.0 /100WBC 07/19/21 06:25 Sodium 140 mmol/L (136-145) 07/19/21 06:25 Potassium 3.3 mmol/L (3.5-5.1) L 07/19/21 06:25 Chloride 106 mmol/L (98-107) 07/19/21 06:25 Carbon Dioxide 23 mmol/L (22-29) 07/19/21 06:25 Anion Gap 14.3 (5-19) 07/19/21 06:25 BUN 3 mg/dL (8-23) L 07/19/21 06:25 Creatinine 0.6 mg/dL (0.5-0.9) 07/19/21 06:25 GFR Calculation 101.3 mL/min (90-130) 07/19/21 06:25 Glucose 108 mg/dL (65-115) 07/19/21 06:25 Calculated Osmolality 287 mOsm/kg (285-295) 07/19/21 06:25 Calcium 8.2 mg/dL (8.5-10.5) L 07/19/21 06:25 Phosphorus 3.5 mg/dL (2.5-4.5) 07/17/21 04:03 Magnesium 1.9 mg/dL (1.7-2.3) 07/19/21 06:25 Total Bilirubin 0.3 mg/dL (0.15-1.2) 07/19/21 06:25 AST 21 U/L (0-32) 07/19/21 06:25 ALT 12 U/L (0-33) 07/19/21 06:25 Alkaline Phosphatase 93 IU/L (35-105) 07/19/21 06:25 C-Reactive Protein 48.7 mg/L (0.0-4.9) H 07/17/21 04:03 Total Protein 6.4 g/dL (6.6-8.7) L 07/19/21 06:25 Albumin 3.2 g/dL (3.5-5.2) L 07/19/21 06:25 Globulin 3.2 g/dL (1.3-4.6) 07/19/21 06:25 Lipase 37 U/L (13-60) 07/16/21 18:32 Procalcitonin 0.07 ng/mL (0-0.5) 07/17/21 04:03 TSH 2.66 uIU/mL (0.27-4.20) 07/16/21 18:32 Urine Color Yellow (Yellow) 07/16/21 17:20 Urine Appearance Clear (CLEAR) 07/16/21 17:20 Urine pH 6 (5-7) 07/16/21 17:20 Ur Specific [place] 1.005 (1.005-1.030) 07/16/21 17:20 Urine Protein Neg (Negative) 07/16/21 17:20 Urine Glucose (UA) Norm (Normal) 07/16/21 17:20 Urine Ketones Negative (Negative) 07/16/21 17:20 Urine Blood Neg (Negative) 07/16/21 17:20 Urine Nitrate Negative (Negative) 07/16/21 17:20 Urine Bilirubin Neg (Negative) 07/16/21 17:20 Urine Urobilinogen Neg mg/dL (Negative) 07/16/21 17:20 Ur Leukocyte Esterase 1+ (Negative) H 07/16/21 17:20 Urine RBC Rare /hpf (0-2) 07/16/21 17:20 Urine WBC 0-4 /hpf (0-5) H 07/16/21 17:20 Ur Squamous Epith Cells Rare /hpf (0-5) 07/16/21 17:20 Amorphous Sediment Not Reportable 07/16/21 17:20 Urine Bacteria Trace /hpf (NONE) 07/16/21 17:20 Vitals Last Vital Signs Temp 97.9 F 07/19/21 07:18 Pulse 72 07/19/21 07:18 Resp 16 07/19/21 07:18 BP 148/85 07/19/21 07:18 Pulse Ox 98 07/19/21 07:18 Discharge Plan Discharge Patient Disposition: Home Condition: Stable Prescriptions: New ciprofloxacin HCl 500 mg tablet 500 mg PO BID 10 Days Qty: 20 0RF metronidazole 500 mg tablet 500 mg PO Q8H 10 Days Qty: 30 0RF Continued cyclobenzaprine 10 mg tablet 10 mg PO BEDTIME PRN (Reason: Muscle Pain) 0RF latanoprost 0.005 % drops 1 drp ophthalmic (eye) BEDTIME 0RF amlodipine 2.5 mg tablet 2.5 mg PO DAILY 0RF 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
[2021-07-19 12:00] VITALS: BP 134/77; PULSE 71; RESP 16; TEMP 37.2; O2SAT 95
== END 2021-07-19 14:29 | disposition home or self-care (01) | DRG 392 ==
LOC: ER 22:21 → ER IP 22:23 → MEDSURG 07-17 17:24
PROVIDERS: Emergency Medicine; Admitting Provider Family Medicine; Emergency Provider Emergency Medicine; PCP Family Medicine; Visit Provider Student in an Organized Health Care Education/Training Program
DX: K57.20 Diverticulitis of large intestine with perforation and abscess without bleeding (principal); E03.9 Hypothyroidism, unspecified; I10 Essential (primary) hypertension; Z96.653 Presence of artificial knee joint, bilateral; Z80.0 Family history of malignant neoplasm of digestive organs
CPT/HCPCS: 36415; 74177; 80053; 81001; 83690; 83735; 84100; 84145; 84443; 85025; 86140; 87493; 96365; 96367; 96372; 97161; 99285; C9113; J0744; J1644; J1650; J7030; Q9967; S0030

== ENCOUNTER → 2023-05-30 09:20 | Outpatient (BNVA) | payer BC, SELFPAY | PROVIDERS: PCP Family Medicine; Visit Provider Nurse Practitioner | DX: R05.9 Cough, unspecified (principal) | CPT/HCPCS: 87400; 87426 ==

== ENCOUNTER → 2023-10-14 17:03 | Outpatient (BNVA) | payer BC, SELFPAY | PROVIDERS: PCP Nurse Practitioner; Visit Provider Emergency Medicine | DX: M25.521 Pain in right elbow (principal) | CPT/HCPCS: 73080 ==

== ENCOUNTER → 2024-04-04 15:00 | Outpatient (BNVA) | payer BC, SELFPAY | PROVIDERS: PCP Nurse Practitioner; Visit Provider Nurse Practitioner Family | DX: M19.032 Primary osteoarthritis, left wrist (principal) | CPT/HCPCS: 73090; 73110 ==